=== PATIENT | female | born 1970 ===

== ENCOUNTER 2018-07-16 01:54 | Inpatient (IN) | payer MEDICAID ==
[~2018-07-16] VITALS: Ht 172.7 cm; Wt 117.7 kg
[2018-07-16] VITALS (8 sets, daily range): BP systolic 134–166; BP diastolic 79–98; BMI 39.1
[2018-07-16] MEDS ORDERED: LISINOPRIL-HCT1 EAC4 PO (02:06)
[2018-07-16] MEDS ORDERED: TRAZODONE HCL150 MG (02:06)
[2018-07-16] MEDS ORDERED: ALBUTEROL SULF8.5 GM INH (02:07)
[2018-07-16] MEDS ORDERED: NEURONTIN 300300 MG PO (02:07)
[2018-07-16] MEDS ORDERED: VISTARIL25 MG (02:08)
[2018-07-16] MEDS ORDERED: BUPROPION HCL150 M1 PO (02:08)
[2018-07-16 02:49] LABS: HEMATOCRIT 44.8 % (36.0-48.0); HEMOGLOBIN 15.2 g/dL (12-16); MCH 31.2 pg (26.0-34.0); MCHC 33.9 g/dL (31.0-37.0); MEAN PLATELET VOLUME 9.7 fL (7.4-10.4); PLATELET COUNT 229 10x3/uL (130-400); RBC 4.87 10x6/uL (4.00-5.40); WBC 22.3 10x3/uL (4.8-10.8)
[2018-07-16 03:06] LABS: ALBUMIN 2.9 g/dL (3.4-5.0); ALKALINE PHOSPHATASE 87 U/L (46-116); ALT (SGPT) 132 U/L (10-68); BILIRUBIN - TOTAL 0.73 mg/dL (0.2-1.3); CALC OSMOLALITY 274 mosm/kg (275-300); CALCIUM 7.4 mg/dL (8.5-10.1); CARBON DIOXIDE 23.9 mmol/L (21.0-32.0); CHLORIDE - SERUM 98 mmol/L (98-107); GLUCOSE 136 mg/dL (74-106); POTASSIUM - SERUM 5.1 mmol/L (3.5-5.1); PROTEIN - SERUM 6.9 g/dL (6.4-8.2); SODIUM 133 mmol/L (136-145); UREA NITROGEN 32 mg/dL (7-18); eGFR NON AFRICAN AMERICAN 28 mL/min (90-120)
[2018-07-16 03:19] LABS: AMYLASE - SERUM 60 U/L (25-115); CKMB 97.5 U/L (0.0-3.6); CREATINE KINASE 22174 UL (21-215); LIPASE 61 U/L (73-393); MAGNESIUM - SERUM 1.8 mg/dL (1.8-2.4); TROPONIN-I < 0.017 ng/mL (0.000-0.060)
[2018-07-16 03:22] LABS: LYMPHOCYTES 9 % (15-50); MONOCYTES 6 % (2-11); NEUTROPHILS 79 % (40-80); PLATELET ESTIMATE NORMAL
[2018-07-16 10:54] LABS: HEMATOCRIT 43.7 % (36.0-48.0); HEMOGLOBIN 14.8 g/dL (12-16); MCH 31.3 pg (26.0-34.0); MCHC 33.9 g/dL (31.0-37.0); MCV 92.4 fL (80.0-100.0); MEAN PLATELET VOLUME 9.5 fL (7.4-10.4); PLATELET COUNT 221 10x3/uL (130-400); RBC 4.73 10x6/uL (4.00-5.40); RDW 14.1 % (11.5-14.5); WBC 20.5 10x3/uL (4.8-10.8)
[2018-07-16 11:16] LABS: CALC OSMOLALITY 274 mosm/kg (275-300); CARBON DIOXIDE 23.5 mmol/L (21.0-32.0); CHLORIDE - SERUM 98 mmol/L (98-107); CREATININE - SERUM 2.2 mg/dL (0.6-1.3); GLUCOSE 133 mg/dL (74-106); MAGNESIUM - SERUM 1.6 mg/dL (1.8-2.4); POTASSIUM - SERUM 4.8 mmol/L (3.5-5.1); SODIUM 132 mmol/L (136-145); UREA NITROGEN 36 mg/dL (7-18); eGFR NON AFRICAN AMERICAN 25 mL/min (90-120)
[2018-07-16 11:20] LABS: LYMPHOCYTES 7 % (15-50); MONOCYTES 7 % (2-11); NEUTROPHILS 82 % (40-80); PLATELET ESTIMATE NORMAL
[2018-07-16 11:22] LABS: CALCIUM 6.8 mg/dL (8.5-10.1); CREATINE KINASE 16491 UL (21-215)
[2018-07-16 12:13] LABS: CKMB 105.1 U/L (0.0-3.6)
[2018-07-17 05:27] VITALS: BP 149/85
[2018-07-17 06:04] LABS: BASOPHILS 0.1 % (0-2); EOSINOPHILS 0.4 % (0-7); HEMATOCRIT 40.5 % (36.0-48.0); IMMATURE GRANULOCYTES 0.3 % (0-5); LYMPHOCYTES 11.4 % (15-50); MCH 31.1 pg (26.0-34.0); MCHC 34.6 g/dL (31.0-37.0); MEAN PLATELET VOLUME 9.8 fL (7.4-10.4); MONOCYTES 6.7 % (2-11); NEUTROPHILS 81.1 % (40-80); PLATELET COUNT 200 10x3/uL (130-400); RDW 14.1 % (11.5-14.5); WBC 15.6 10x3/uL (4.8-10.8)
[2018-07-17 06:36] LABS: CALC OSMOLALITY 265 mosm/kg (275-300); CALCIUM 7.1 mg/dL (8.5-10.1); CARBON DIOXIDE 21.6 mmol/L (21.0-32.0); CHLORIDE - SERUM 95 mmol/L (98-107); CREATININE - SERUM 2.1 mg/dL (0.6-1.3); GLUCOSE 121 mg/dL (74-106); POTASSIUM - SERUM 4.6 mmol/L (3.5-5.1); SODIUM 128 mmol/L (136-145); UREA NITROGEN 36 mg/dL (7-18); eGFR NON AFRICAN AMERICAN 27 mL/min (90-120)
[2018-07-17 06:41] LABS: CREATINE KINASE 8616 UL (21-215)
[2018-07-17 07:06] LABS: CKMB 13.3 U/L (0.0-3.6)
[2018-07-17 12:44] VITALS: BP 156/98
[2018-07-17 14:49] VITALS: Ht 172.7 cm; Wt 117.7 kg
[2018-07-17 17:09] VITALS: BP 150/88
[2018-07-17 20:00] VITALS: BP 131/83
[2018-07-18] VITALS: BP 113/74; BP 120/74
[2018-07-18 04:00] VITALS: BP 121/71
[2018-07-18 06:38] LABS: BASOPHILS 0.2 % (0-2); EOSINOPHILS 1.8 % (0-7); HEMATOCRIT 36.4 % (36.0-48.0); HEMOGLOBIN 12.3 g/dL (12-16); IMMATURE GRANULOCYTES 0.3 % (0-5); LYMPHOCYTES 15.6 % (15-50); MCH 30.7 pg (26.0-34.0); MCHC 33.8 g/dL (31.0-37.0); MCV 90.8 fL (80.0-100.0); MEAN PLATELET VOLUME 9.9 fL (7.4-10.4); MONOCYTES 6.6 % (2-11); NEUTROPHILS 75.5 % (40-80); PLATELET COUNT 213 10x3/uL (130-400); RBC 4.01 10x6/uL (4.00-5.40); RDW 14.1 % (11.5-14.5); WBC 11.1 10x3/uL (4.8-10.8)
[2018-07-18 07:24] LABS: CALCIUM 7.7 mg/dL (8.5-10.1); CARBON DIOXIDE 25.5 mmol/L (21.0-32.0); CHLORIDE - SERUM 99 mmol/L (98-107); GLUCOSE 115 mg/dL (74-106); POTASSIUM - SERUM 4.4 mmol/L (3.5-5.1); SODIUM 132 mmol/L (136-145)
[2018-07-18 07:28] LABS: CALC OSMOLALITY 269 mosm/kg (275-300); CREATININE - SERUM 1.3 mg/dL (0.6-1.3); UREA NITROGEN 23 mg/dL (7-18); eGFR NON AFRICAN AMERICAN 46 mL/min (90-120)
[2018-07-18 07:29] LABS: CREATINE KINASE 5455 UL (21-215)
[2018-07-18 07:45] LABS: CKMB 3.3 U/L (0.0-3.6)
[2018-07-18 08:17] VITALS: BP 131/68
[2018-07-18 08:50] LABS: ALBUMIN 1.9 g/dL (3.4-5.0); BILIRUBIN - DIRECT 0.07 mg/dL (0.00-0.30); BILIRUBIN - INDIRECT 0.25 mg/dL (0.00-1.00); BILIRUBIN - TOTAL 0.32 mg/dL (0.2-1.3); PROTEIN - SERUM 5.7 g/dL (6.4-8.2)
[2018-07-18 12:22] VITALS: BP 128/76
[2018-07-18 16:08] VITALS: BP 121/71
[2018-07-18 20:00] VITALS: BP 109/74
[2018-07-19 04:23] VITALS: BP 132/82
[2018-07-19 05:53] LABS: BASOPHILS 0.2 % (0-2); HEMATOCRIT 34.4 % (36.0-48.0); HEMOGLOBIN 11.5 g/dL (12-16); IMMATURE GRANULOCYTES 0.6 % (0-5); LYMPHOCYTES 21.2 % (15-50); MCH 30.5 pg (26.0-34.0); MCHC 33.4 g/dL (31.0-37.0); MCV 91.2 fL (80.0-100.0); MEAN PLATELET VOLUME 9.7 fL (7.4-10.4); MONOCYTES 7.4 % (2-11); NEUTROPHILS 67.6 % (40-80); PLATELET COUNT 228 10x3/uL (130-400); RBC 3.77 10x6/uL (4.00-5.40); RDW 14.2 % (11.5-14.5); WBC 8.8 10x3/uL (4.8-10.8)
[2018-07-19 06:02] LABS: ALBUMIN 1.9 g/dL (3.4-5.0); ANION GAP 12.1 mmol/L (8-16); BILIRUBIN - TOTAL 0.32 mg/dL (0.2-1.3); CARBON DIOXIDE 25.8 mmol/L (21.0-32.0); POTASSIUM - SERUM 3.9 mmol/L (3.5-5.1); PROTEIN - SERUM 5.4 g/dL (6.4-8.2)
[2018-07-19 07:22] LABS: HEPATITIS C ANTIBODY <0.1 S/CO RAT (0.0-0.9)
[2018-07-19 09:23] VITALS: BP 136/76
[2018-07-19 11:38] VITALS: BP 142/72
[2018-07-19 15:27] LABS: CREATINE KINASE 3715 UL (21-215)
[2018-07-19 15:51] LABS: CKMB 1.7 U/L (0.0-3.6)
[2018-07-19 16:15] VITALS: BP 132/72
[2018-07-19 20:00] VITALS: BP 114/67
[2018-07-20] VITALS: BP 118/65
[2018-07-20 03:00] VITALS: BP 139/94
[2018-07-20 06:05] LABS: BASOPHILS 0.2 % (0-2); EOSINOPHILS 3.7 % (0-7); HEMATOCRIT 33.5 % (36.0-48.0); HEMOGLOBIN 11.1 g/dL (12-16); IMMATURE GRANULOCYTES 0.5 % (0-5); LYMPHOCYTES 23.8 % (15-50); MCH 30.2 pg (26.0-34.0); MCHC 33.1 g/dL (31.0-37.0); MCV 91.3 fL (80.0-100.0); MEAN PLATELET VOLUME 9.3 fL (7.4-10.4); NEUTROPHILS 63.8 % (40-80); PLATELET COUNT 270 10x3/uL (130-400); RBC 3.67 10x6/uL (4.00-5.40); RDW 13.9 % (11.5-14.5); WBC 9.7 10x3/uL (4.8-10.8)
[2018-07-20 06:33] LABS: ANION GAP 9.4 mmol/L (8-16); BILIRUBIN - TOTAL 0.49 mg/dL (0.2-1.3); CALCIUM 7.8 mg/dL (8.5-10.1); CARBON DIOXIDE 27.4 mmol/L (21.0-32.0); CREATININE - SERUM 0.9 mg/dL (0.6-1.3); POTASSIUM - SERUM 3.8 mmol/L (3.5-5.1); PROTEIN - SERUM 5.5 g/dL (6.4-8.2)
--- NOTE | 2018-07-20 09:26 | MORECARE ---
CASE MANAGEMENT DISCHARGE SUMMARY PATIENT: LEANDRO DICKEY UNIT: [id number] ADM DATE: 07/16/18 AGE: 47 : 68 SEX: F ROOM/BED: D.2134 AUTHOR: DARRYL BUSTOS PHYSICIAN: REFERRING PHYSICIAN: CROW SOSA MD DATE OF SERVICE: 07/20/18 Discharge Plan Patient Name: LEANDRO DICKEY Facility: [facility]:[place] : 1970 Planned Disposition: Home Anticipated Discharge Date: 07/24/18 Discharge Date: Expected LOS: 8 Initial Reviewer: [email or web address] Initial Review Date: 07/20/2018 Generated: 07/20/18 10:25 am Patient Name: LEANDRO DICKEY Page 97643 at 0926 All edits/amendments must be made on the electronic document DICTATION DATE: 07/20/18924 VALVE GRINDER: NAREN 07/20/18924 RPT#: [id number] DC DATE: STATUS: ADM IN [facility] [address] [place] [address] END OF REPORT
[2018-07-20 09:27] VITALS: BP 115/66
--- NOTE | 2018-07-20 09:32 | MORECARE ---
CASE MANAGEMENT DISCHARGE SUMMARY PATIENT: LEANDRO DICKEY UNIT: [id number] ADM DATE: 07/16/18 AGE: 47 : 68 SEX: F ROOM/BED: D.3574 AUTHOR: AKASHDOC PHYSICIAN: REFERRING PHYSICIAN: CROW SOSA MD DATE OF SERVICE: 07/20/18 Discharge Plan Patient Name: LEANDRO DICKEY Facility: [facility]:[place] : 1970 Planned Disposition: Home Anticipated Discharge Date: 07/24/18 Discharge Date: Expected LOS: 8 Initial Reviewer: [id number] Initial Review Date: 07/20/2018 Generated: 07/20/18 10:32 am Comments DCP- Discharge Planning Updated by [email or web address]: Rita Serrano on 07/20/18 8:[address] Patient Name: LEANDRO DICKEY Admission Status: ER Accout number: [id number] Admission Date: 07-16-2018 : 1970 Admission Diagnosis: Attending: CROW SOSA Current LOS: 4 Anticipated DC Date: 07-24-2018 Planned Disposition: Home Primary Insurance: MEDICAID [place] Discharge Planning Comments: CM MET WITH PATIENT REGARDING D/C NEEDS AND PLANS. PATIENT STATED SHE LIVES WITH FAMILY AND HER FRIEND RAJAT SHUKLA WILL DRIVE HER HOME AT DISCHARGE. PATIENT STATES SHE HAS 2 STEPS TO ENTER HER HOME. PATIENT STATED SHE IS INDEPENDENT WITH HER CARE AND HAS A WALKER, CANE, AND BSC AT HOME IF NEEDED. PATIENTS PCP IS DR. AYON IN [place] BUT SHE SEES THE [place]. [facility] [place]. PATIENT REFUSED HOME HEALTH AT THIS TIME. CM WILL CONTINUE TO FOLLOW PATIENT WITH D/C NEEDS AND PLANS. PCP DR. AYON ([facility] IN [place]) [facility] IN [place] MAYELIN DINH- [phone] Power Plant Operator: Rita Serrano DCPIA - Discharge Planning Initial Assessment Updated by [email or web address]: Rita Serrano on 07/20/18 9:26 am * Is the patient Alert and Oriented? Yes * How many steps to enter\exit or inside your home? * PCP DR. AYON ([facility]) [facility] IN [place] * Pharmacy [facility] IN [facility] * Preadmission Environment Home with Family * ADLs Independent * Equipment Bedside Commode Mariano Ashraf * List name and contact numbers for known caregivers / representatives who currently or will assist patient after discharge: MAYELINMario DINH [phone] * Verbal permission to speak to the caregivers and representatives has been obtained from the patient. Yes * Community resources currently utilized None * Additional services required to return to the preadmission environment? Yes * Can the patient safely return to the preadmission environment? Yes * Has this patient been hospitalized within the prior 30 days at any hospital? No Last DP export: 07/20/18 8:26 a Patient Name: LEANDRO DICKEY Page 31587 at 0932 All edits/amendments must be made on the electronic document DICTATION DATE: 07/20/18931 NUT CHOPPER: NAREN 07/20/18931 RPT#: [id number] DC DATE: STATUS: ADM IN [facility] [address] [place] [address] END OF REPORT
[2018-07-20 11:56] VITALS: BP 122/62
[2018-07-20 14:15] LABS: CREATINE KINASE 2872 UL (21-215)
[2018-07-20 14:17] LABS: CKMB 1.3 U/L (0.0-3.6)
[2018-07-20 15:55] VITALS: BP 110/71
[2018-07-20 20:00] VITALS: BP 118/61
[2018-07-21 00:25] VITALS: BP 137/81
[2018-07-21 04:25] VITALS: BP 126/81
[2018-07-21 06:22] LABS: BASOPHILS 0.2 % (0-2); EOSINOPHILS 3.4 % (0-7); HEMATOCRIT 32.7 % (36.0-48.0); HEMOGLOBIN 10.8 g/dL (12-16); IMMATURE GRANULOCYTES 0.6 % (0-5); LYMPHOCYTES 17.1 % (15-50); MCH 30.3 pg (26.0-34.0); MCV 91.9 fL (80.0-100.0); MEAN PLATELET VOLUME 8.9 fL (7.4-10.4); MONOCYTES 6.6 % (2-11); NEUTROPHILS 72.1 % (40-80); PLATELET COUNT 236 10x3/uL (130-400); RBC 3.56 10x6/uL (4.00-5.40); RDW 13.9 % (11.5-14.5); WBC 8.5 10x3/uL (4.8-10.8)
[2018-07-21 07:13] LABS: ALBUMIN 2.2 g/dL (3.4-5.0); ALKALINE PHOSPHATASE 68 U/L (46-116); ALT (SGPT) 61 U/L (10-68); BILIRUBIN - TOTAL 0.59 mg/dL (0.2-1.3); CALC OSMOLALITY 270 mosm/kg (275-300); CALCIUM 8.2 mg/dL (8.5-10.1); CARBON DIOXIDE 30.2 mmol/L (21.0-32.0); CHLORIDE - SERUM 98 mmol/L (98-107); CREATININE - SERUM 0.7 mg/dL (0.6-1.3); GLUCOSE 86 mg/dL (74-106); POTASSIUM - SERUM 3.4 mmol/L (3.5-5.1); PROTEIN - SERUM 5.7 g/dL (6.4-8.2); SODIUM 136 mmol/L (136-145); UREA NITROGEN 13 mg/dL (7-18); eGFR NON AFRICAN AMERICAN > 90 mL/min (90-120)
[2018-07-21 07:16] LABS: CKMB 2.2 U/L (0.0-3.6); CREATINE KINASE 2259 UL (21-215)
[2018-07-21 08:30] VITALS: BP 157/79
[2018-07-21 12:02] VITALS: BP 135/70
[2018-07-21 15:31] VITALS: BP 138/76
[2018-07-21 20:00] VITALS: BP 146/76
[2018-07-22 00:25] VITALS: BP 130/72
[2018-07-22 04:25] VITALS: BP 128/81
[2018-07-22 05:22] LABS: BASOPHILS 0.1 % (0-2); EOSINOPHILS 4.4 % (0-7); HEMATOCRIT 33.3 % (36.0-48.0); HEMOGLOBIN 11.1 g/dL (12-16); IMMATURE GRANULOCYTES 0.6 % (0-5); LYMPHOCYTES 21.1 % (15-50); MCH 30.8 pg (26.0-34.0); MCHC 33.3 g/dL (31.0-37.0); MCV 92.5 fL (80.0-100.0); MONOCYTES 6.8 % (2-11); PLATELET COUNT 265 10x3/uL (130-400); RDW 13.7 % (11.5-14.5); WBC 8.5 10x3/uL (4.8-10.8)
[2018-07-22 06:38] LABS: ALBUMIN 2.3 g/dL (3.4-5.0); ALKALINE PHOSPHATASE 79 U/L (46-116); ALT (SGPT) 59 U/L (10-68); BILIRUBIN - TOTAL 0.58 mg/dL (0.2-1.3); CALC OSMOLALITY 270 mosm/kg (275-300); CALCIUM 7.8 mg/dL (8.5-10.1); CARBON DIOXIDE 28.6 mmol/L (21.0-32.0); CHLORIDE - SERUM 99 mmol/L (98-107); CREATININE - SERUM 0.8 mg/dL (0.6-1.3); GLUCOSE 91 mg/dL (74-106); PROTEIN - SERUM 6.1 g/dL (6.4-8.2); SODIUM 136 mmol/L (136-145); UREA NITROGEN 11 mg/dL (7-18); eGFR NON AFRICAN AMERICAN 81 mL/min (90-120)
[2018-07-22 06:55] LABS: POTASSIUM - SERUM 2.9 mmol/L (3.5-5.1)
[2018-07-22 08:41] VITALS: BP 141/82
--- NOTE | 2018-07-22 14:03 | MORECARE ---
CASE MANAGEMENT DISCHARGE SUMMARY PATIENT: LEANDRO DICKEY UNIT: [id number] ADM DATE: 07/16/18 AGE: 47 : 68 SEX: F ROOM/BED: D.6144 AUTHOR: DARRYL BUSTOS PHYSICIAN: REFERRING PHYSICIAN: CROW SOSA MD DATE OF SERVICE: 07/22/18 Discharge Plan Patient Name: LEANDRO DICKEY Facility: [facility]:[place] : 1970 Planned Disposition: Home with Home Health Anticipated Discharge Date: 07/23/18 Discharge Date: Expected LOS: 7 Initial Reviewer: [email or web address] Initial Review Date: 07/20/2018 Generated: 07/22/18 3:03 pm Comments DCP- Discharge Planning Updated by [email or web address]: Rita Serrano on 07/20/18 8:[address] Patient Name: LEANDRO DICKEY Admission Status: ER Accout number: [id number] Admission Date: 07-16-2018 : 1970 Admission Diagnosis: Attending: CROW SOSA Current LOS: 4 Anticipated DC Date: 07-24-2018 Planned Disposition: Home Primary Insurance: MEDICAID [place] Discharge Planning Comments: CM MET WITH PATIENT REGARDING D/C NEEDS AND PLANS. PATIENT STATED SHE LIVES WITH FAMILY AND HER FRIEND RAJAT SHUKLA WILL DRIVE HER HOME AT DISCHARGE. PATIENT STATES SHE HAS 2 STEPS TO ENTER HER HOME. PATIENT STATED SHE IS INDEPENDENT WITH HER CARE AND HAS A WALKER, CANE, AND BSC AT HOME IF NEEDED. PATIENTS PCP IS DR. AYON IN [place] BUT SHE SEES THE [facility]. PATIENTS PHARMACY IS [facility] IN [place]. PATIENT REFUSED HOME HEALTH AT THIS TIME. CM WILL CONTINUE TO FOLLOW PATIENT WITH D/C NEEDS AND PLANS. PCP DR. AYON ([facility] IN [place]) [facility] IN [place] MAYELIN DINH- [phone] Checker In: Rita Serrano DCPIA - Discharge Planning Initial Assessment Updated by [email or web address]: Rita Serrano on 07/20/18 9:26 am * Is the patient Alert and Oriented? Yes * How many steps to enter\exit or inside your home? * PCP DR. AYON ([facility]) [facility] IN [place] * Pharmacy [facility] IN [facility] * Preadmission Environment Home with Family * ADLs Independent * Equipment Bedside Commode Mariano Ashraf * List name and contact numbers for known caregivers / representatives who currently or will assist patient after discharge: MAYELIN CARLOSLUZ MARIA [phone] * Verbal permission to speak to the caregivers and representatives has been obtained from the patient. Yes * Community resources currently utilized None * Additional services required to return to the preadmission environment? Yes * Can the patient safely return to the preadmission environment? Yes * Has this patient been hospitalized within the prior 30 days at any hospital? No Last DP export: 07/20/18 8:32 a Patient Name: LEANDRO DICKEY Page 98236 at 1403 All edits/amendments must be made on the electronic document DICTATION DATE: 07/22/181401 CLERICAL PROOFREADER: NAREN 07/22/181401 RPT#: [id number] DC DATE: STATUS: ADM IN [facility] [address] [place] [address] END OF REPORT
--- NOTE | 2018-07-22 14:13 | MORECARE ---
CASE MANAGEMENT DISCHARGE SUMMARY PATIENT: LEANDRO DICKEY UNIT: [id number] ADM DATE: 07/16/18 AGE: 47 : 68 SEX: F ROOM/BED: D.4405 AUTHOR: AKASH,DOC PHYSICIAN: REFERRING PHYSICIAN: CROW SOSA MD DATE OF SERVICE: 07/22/18 Discharge Plan Patient Name: LEANDRO DICKEY Facility: [facility]:[place] : 1970 Planned Disposition: Home with Home Health Anticipated Discharge Date: 07/23/18 Discharge Date: Expected LOS: 7 Initial Reviewer: [email or web address] Initial Review Date: 07/20/2018 Generated: 07/22/18 3:13 pm Comments DCP- Discharge Planning Updated by [email or web address]: Shahid Hall on 07/22/18 1:[address] Patient Name: LEANDRO DICKEY Encounter No: [id number] : 1970 Primary Insurance: MEDICAID [place] Anticipated DC Date: 07-23-2018 Planned Disposition: Home with Home Health External Planned Provider: [facility] DCP follow-up note: CM MET WITH PT IN ROOM TO DISCUSS DISCHARGE NEEDS AND PLANNING. CM DISCUSSED AVAILABILITY OF HOME HEALTH, REHAB SERVICES AND MEDICAL EQUIPMENT. PT DOES NOT HAVE INPATIENT OR SHELTER BENEFIT WITH MEDICAID. PT DECLINES PAPER PRODUCTS PRINTER CARE PLACEMENT IN [place]. CM DISCUSSED OUTPATIENT AND HOME HEALTH THERAPY. PT WOULD LIKE CM TO CALL [facility] AND EXPLORE THE OPTION. CM CALLED [facility] OUTPATIENT THERAPY DEPARTMENT, , SPOKE TO CELESTE WHO INFORMED CM THAT PT ONLY GETS 12 ACUTE VISITS FOR OUTPATIENT SERVICES PER YEAR AND THAT INCLUDES DOCTOR CONSULTS AND DENTISTRY. CELESTE SUGGESTS THAT PT ACCEPT HOME HEALTH WITH [facility] AND THEY CAN WORK WITH HOME HEALTH AND PROVIDE ACCESS TO THE OUTPATIENT GYM TO ASSIST WITH THERAPY SERVICES THROUGH MEDICAID. CM SPOKE TO PT IN ROOM, PT AGREEABLE WITH HOME HEALTH SUGGESTED BY CELESTE; PROVIDER LISTING PROVIDED, CHOICE SIGNED FOR [facility]. PT REPORTS A FRIEND FROM [place] TO TRANSPORT HOME AT DISCHARGE. PT REPORTS [place]CHARGE ADDRESS TO [place] [address] [address] PT PLANS TO DISCHARGE HOME TO HER BROTHER'S HOME, WANTS HOME HEALTH FOR PHYSICAL THERAPY, CM TO ARRANGE WITH [facility] WITH PHYSICIAN AGREEMENT AND ORDERS. CM TO FOLLOW AND ASSIST NEEDED. Shahid Hall, CASE MANAGEMENT DCP- Discharge Planning Updated by [id number]: Rita Serrano on 07/20/18 8:[address] Patient Name: LEANDRO DICKEY Admission Status: ER Accout number: [id number] Admission Date: 07-16-2018 : 1970 Admission Diagnosis: Attending: CROW SOSA Current LOS: 4 Anticipated DC Date: 07-24-2018 Planned Disposition: Home Primary Insurance: MEDICAID [place] Discharge Planning Comments: CM MET WITH PATIENT REGARDING D/C NEEDS AND PLANS. PATIENT STATED SHE LIVES WITH FAMILY AND HER FRIEND RAJAT SHUKLA WILL DRIVE HER HOME AT DISCHARGE. PATIENT STATES SHE HAS 2 STEPS TO ENTER HER HOME. PATIENT STATED SHE IS INDEPENDENT WITH HER CARE AND HAS A WALKER, CANE, AND BSC AT HOME IF NEEDED. PATIENTS PCP IS DR. AYON IN [place] BUT SHE SEES THE [place]. PATIENTS PHARMACY IS [facility] IN [place]. PATIENT REFUSED HOME HEALTH AT THIS TIME. CM WILL CONTINUE TO FOLLOW PATIENT WITH D/C NEEDS AND PLANS. PCP DR. AYON ([facility] IN [place]) [facility] [place] MAYELIN DINH- [phone] Cast Shell Grinder: Rita Serrano DCPIA - Discharge Planning Initial Assessment Updated by [email or web address]: Rita Serrano on 07/20/18 9:26 am * Is the patient Alert and Oriented? Yes * How many steps to enter\exit or inside your home? * PCP DR. AYON ([facility]) [facility] IN [place] * [facility] * Preadmission Environment Home with Family * ADLs Independent * Equipment Bedside Commode Cane Walker * List name and contact numbers for known caregivers / representatives who currently or will assist patient after discharge: MAYELIN DINH [phone] * Verbal permission to speak to the caregivers and representatives has been obtained from the patient. Yes * Community resources currently utilized None * Additional services required to return to the preadmission environment? Yes * Can the patient safely return to the preadmission environment? Yes * Has this patient been hospitalized within the prior 30 days at any hospital? No Coverage Notice Reviewer: [email or web address] Saundra Hall Notice Issued Date-Time: 07/22/2018 13:40 Notice Type: Patient Choice Letter Notice Delivered To: Patient Relationship to Patient: Compressor Mechanic Bus Name: Delivery Method: HAND - Hand Delivered Deysi Days: Prior Verbal Notification: Recipient Understood Notice: Yes Recipient Signature: Yes Med Rec Note Co-signed by Attending: Coverage Notice Comment: [facility] Last DP export: 07/22/18 1:03 p Patient Name: LEANDRO DICKEY Page 30076 at 1413 All edits/amendments must be made on the electronic document DICTATION DATE: 07/22/18 1412 NEIGHBORHOOD COORDINATOR: NAREN 07/22/18 1412 RPT#: [id number] DC DATE: STATUS: ADM IN [facility] [address] [place] [address] END OF REPORT
[2018-07-22 20:00] VITALS: BP 141/60
[2018-07-23] VITALS: BP 134/75
[2018-07-23 04:00] VITALS: BP 130/86
[2018-07-23 05:49] LABS: BASOPHILS 0.2 % (0-2); EOSINOPHILS 3.7 % (0-7); HEMOGLOBIN 10.1 g/dL (12-16); IMMATURE GRANULOCYTES 0.8 % (0-5); LYMPHOCYTES 25.2 % (15-50); MCH 30.1 pg (26.0-34.0); MCHC 32.6 g/dL (31.0-37.0); MCV 92.5 fL (80.0-100.0); MEAN PLATELET VOLUME 8.9 fL (7.4-10.4); MONOCYTES 9.9 % (2-11); NEUTROPHILS 60.2 % (40-80); PLATELET COUNT 254 10x3/uL (130-400); RBC 3.35 10x6/uL (4.00-5.40); RDW 13.8 % (11.5-14.5)
[2018-07-23 06:18] LABS: ALBUMIN 2.1 g/dL (3.4-5.0); ALKALINE PHOSPHATASE 70 U/L (46-116); ALT (SGPT) 48 U/L (10-68); BILIRUBIN - TOTAL 0.51 mg/dL (0.2-1.3); CALC OSMOLALITY 276 mosm/kg (275-300); CALCIUM 7.9 mg/dL (8.5-10.1); CARBON DIOXIDE 32.6 mmol/L (21.0-32.0); CHLORIDE - SERUM 103 mmol/L (98-107); CREATININE - SERUM 0.7 mg/dL (0.6-1.3); GLUCOSE 103 mg/dL (74-106); PROTEIN - SERUM 5.4 g/dL (6.4-8.2); SODIUM 139 mmol/L (136-145); UREA NITROGEN 10 mg/dL (7-18); eGFR NON AFRICAN AMERICAN > 90 mL/min (90-120)
[2018-07-23 06:22] LABS: POTASSIUM - SERUM 3.5 mmol/L (3.5-5.1)
[2018-07-23 07:35] LABS: WBC 6.3 10x3/uL (4.8-10.8)
[2018-07-23 08:34] VITALS: BP 139/78
--- NOTE | 2018-07-23 11:21 | MORECARE ---
CASE MANAGEMENT DISCHARGE SUMMARY PATIENT: LEANDRO DICKEY UNIT: [id number] ADM DATE: 07/16/18 AGE: 47 : 68 SEX: F ROOM/BED: D.6258 AUTHOR: AKASH,DOC PHYSICIAN: REFERRING PHYSICIAN: CROW SOSA MD DATE OF SERVICE: 07/23/18 Discharge Plan Patient Name: LEANDRO DICKEY Facility: [facility]:[place] : 1970 Planned Disposition: Home with Home Health Anticipated Discharge Date: 07/23/18 Discharge Date: Expected LOS: 7 Initial Reviewer: [email or web address] Initial Review Date: 07/20/2018 Generated: 07/23/18 12:21 pm Comments DCP- Discharge Planning Updated by [email or web address]: Shahid Hall on 07/22/18 1:[address] Patient Name: LEANDRO DICKEY Encounter No: [id number] : 1970 Primary Insurance: MEDICAID [place] Anticipated DC Date: 07-23-2018 Planned Disposition: Home with Home Health External Planned Provider: [facility] DCP follow-up note: CM MET WITH PT IN ROOM TO DISCUSS DISCHARGE NEEDS AND PLANNING. CM DISCUSSED AVAILABILITY OF HOME HEALTH, REHAB SERVICES AND MEDICAL EQUIPMENT. PT DOES NOT HAVE INPATIENT OR SENIOR LIVING BENEFIT WITH MEDICAID. PT DECLINES TELE MARKETING EXECUTIVE CARE PLACEMENT IN [facility]. CM DISCUSSED OUTPATIENT AND HOME HEALTH THERAPY. PT WOULD LIKE CM TO CALL [facility] AND EXPLORE THE OPTION. CM CALLED [facility] OUTPATIENT THERAPY DEPARTMENT, , SPOKE TO CELESTE WHO INFORMED CM THAT PT ONLY GETS 12 ACUTE VISITS FOR OUTPATIENT SERVICES PER YEAR AND THAT INCLUDES DOCTOR CONSULTS AND DENTISTRY. CELESTE SUGGESTS THAT PT ACCEPT HOME HEALTH WITH [facility] AND THEY CAN WORK WITH HOME HEALTH AND PROVIDE ACCESS TO THE OUTPATIENT GYM TO ASSIST WITH THERAPY SERVICES THROUGH MEDICAID. CM SPOKE TO PT IN ROOM, PT AGREEABLE WITH HOME HEALTH SUGGESTED BY CELESTE; PROVIDER LISTING PROVIDED, CHOICE SIGNED FOR [facility]. PT REPORTS A FRIEND FROM [place] TO TRANSPORT HOME AT DISCHARGE. PT REPORTS [place]CHAR[place] ADDR[place] [facility] [address] [address] PT PLANS TO DISCHARGE HOME TO HER BROTHER'S HOME, WANTS HOME HEALTH FOR PHYSICAL THERAPY, CM TO ARRANGE WITH [facility] WITH PHYSICIAN AGREEMENT AND ORDERS. CM TO FOLLOW AND ASSIST NEEDED. Shahid Hall, CASE MANAGEMENT DCP- Discharge Planning Updated by [email or web address]: Rita Serrano on 07/20/18 8:[address] Patient Name: LEANDRO DICKEY Admission Status: ER Accout number: [id number] Admission Date: 07-16-2018 : 1970 Admission Diagnosis: Attending: CROW SOSA Current LOS: 4 Anticipated DC Date: 07-24-2018 Planned Disposition: Home Primary Insurance: MEDICAID [place] Discharge Planning Comments: CM MET WITH PATIENT REGARDING D/C NEEDS AND PLANS. PATIENT STATED SHE LIVES WITH FAMILY AND HER FRIEND RAJAT SHUKLA WILL DRIVE HER HOME AT DISCHARGE. PATIENT STATES SHE HAS 2 STEPS TO ENTER HER HOME. PATIENT STATED SHE IS INDEPENDENT WITH HER CARE AND HAS A WALKER, CANE, AND BSC AT HOME IF NEEDED. PATIENTS PCP IS DR. AYON IN [place] BUT SHE SEES THE [facility]. PATIENTS PHARMACY IS [facility] IN [place]. PATIENT REFUSED HOME HEALTH AT THIS TIME. CM WILL CONTINUE TO FOLLOW PATIENT WITH D/C NEEDS AND PLANS. PCP DR. AYON ([facility] IN [place]) [facility] [place] MAYELIN DINH- [phone] Photo Manager: Rita Serrano DCPIA - Discharge Planning Initial Assessment Updated by [id number]: Rita Serrano on 07/20/18 9:26 am * Is the patient Alert and Oriented? Yes * How many steps to enter\exit or inside your home? * PCP DR. AYON ([facility]) [facility] IN [place] * [facility] * Preadmission Environment Home with Family * ADLs Independent * Equipment Bedside Commode Cane Walker * List name and contact numbers for known caregivers / representatives who currently or will assist patient after discharge: MAYELIN DINH [phone] * Verbal permission to speak to the caregivers and representatives has been obtained from the patient. Yes * Community resources currently utilized None * Additional services required to return to the preadmission environment? Yes * Can the patient safely return to the preadmission environment? Yes * Has this patient been hospitalized within the prior 30 days at any hospital? No External Providers External Provider: OTHER-OTHER Next Contact Date: 07/23/2018 Service Request Date: Service Type: Resolution: Reviewer: Comments: Coverage Notice Reviewer: [id number] - Shahid Isabel Notice Issued Date-Time: 07/22/2018 13:40 Notice Type: Patient Choice Letter Notice Delivered To: Patient Relationship to Patient: Unit Educator Name: Delivery Method: HAND - Hand Delivered Deysi Days: Prior Verbal Notification: Recipient Understood Notice: Yes Recipient Signature: Yes Med Rec Note Co-signed by Attending: Coverage Notice Comment: [facility] Last DP export: 07/22/18 1:13 p Patient Name: LEANDRO DICKEY Page 25057 at 1121 All edits/amendments must be made on the electronic document DICTATION DATE: 07/23/181120 TRAVELING REPRESENTATIVE: NAREN 07/23/18 112 RPT#: [id number] DC DATE: STATUS: ADM IN [facility] [address] [place] [address] END OF REPORT
[2018-07-23 11:31] VITALS: BP 135/79
--- NOTE | 2018-07-23 11:42 | MORECARE ---
CASE MANAGEMENT DISCHARGE SUMMARY PATIENT: LEANDRO DICKEY UNIT: [id number] ADM DATE: 07/16/18 AGE: 47 : 68 SEX: F ROOM/BED: D.0990 AUTHOR: AKASH,DOC PHYSICIAN: REFERRING PHYSICIAN: CROW SOSA MD DATE OF SERVICE: 07/23/18 Discharge Plan Patient Name: LEANDRO DICKEY Facility: [facility]:[place] : 1970 Planned Disposition: Home with Home Health Anticipated Discharge Date: 07/23/18 Discharge Date: Expected LOS: 7 Initial Reviewer: [id number] Initial Review Date: 07/20/2018 Generated: 07/23/18 12:42 pm Comments DCP- Discharge Planning Updated by [email or web address]: Shahid Hall on 07/22/18 1:[address] Patient Name: LEANDRO DICKEY Encounter No: [id number] : 1970 Primary Insurance: MEDICAID [place] Anticipated DC Date: 07-23-2018 Planned Disposition: Home with Home Health External Planned Provider: [facility] DCP follow-up note: CM MET WITH PT IN ROOM TO DISCUSS DISCHARGE NEEDS AND PLANNING. CM DISCUSSED AVAILABILITY OF HOME HEALTH, REHAB SERVICES AND MEDICAL EQUIPMENT. PT DOES NOT HAVE INPATIENT OR [facility] BENEFIT WITH MEDICAID. PT DECLINES PHLEBOTOMY LAB ASSISTANT CARE PLACEMENT IN [facility]. CM DISCUSSED OUTPATIENT AND HOME HEALTH THERAPY. PT WOULD LIKE CM TO CALL [facility] AND EXPLORE THE OPTION. CM CALLED [facility] OUTPATIENT THERAPY DEPARTMENT, , SPOKE TO CELESTE WHO INFORMED CM THAT PT ONLY GETS 12 ACUTE VISITS FOR OUTPATIENT SERVICES PER YEAR AND THAT INCLUDES DOCTOR CONSULTS AND DENTISTRY. CELESTE SUGGESTS THAT PT ACCEPT HOME HEALTH WITH [facility] AND THEY CAN WORK WITH HOME HEALTH AND PROVIDE ACCESS TO THE OUTPATIENT GYM TO ASSIST WITH THERAPY SERVICES THROUGH MEDICAID. CM SPOKE TO PT IN ROOM, PT AGREEABLE WITH HOME HEALTH SUGGESTED BY CELESTE; PROVIDER LISTING PROVIDED, CHOICE SIGNED FOR [facility]. PT REPORTS A FRIEND FROM [place] TO TRANSPORT HOME AT DISCHARGE. PT REPORTS [place] ADDR[place] [address] [address] PT PLANS TO DISCHARGE HOME TO HER BROTHER'S HOME, WANTS HOME HEALTH FOR PHYSICAL THERAPY, CM TO ARRANGE WITH [facility] WITH PHYSICIAN AGREEMENT AND ORDERS. CM TO FOLLOW AND ASSIST NEEDED. Shahid Hall, CASE MANAGEMENT DCP- Discharge Planning Updated by [email or web address]: Rita Serrano on 07/20/18 8:[address] Patient Name: LEANDRO DICKEY Admission Status: ER Accout number: [id number] Admission Date: 07-16-2018 : 1970 Admission Diagnosis: Attending: CROW SOSA Current LOS: 4 Anticipated DC Date: 07-24-2018 Planned Disposition: Home Primary Insurance: MEDICAID [place] Discharge Planning Comments: CM MET WITH PATIENT REGARDING D/C NEEDS AND PLANS. PATIENT STATED SHE LIVES WITH FAMILY AND HER FRIEND RAJAT SHUKLA WILL DRIVE HER HOME AT DISCHARGE. PATIENT STATES SHE HAS 2 STEPS TO ENTER HER HOME. PATIENT STATED SHE IS INDEPENDENT WITH HER CARE AND HAS A WALKER, CANE, AND BSC AT HOME IF NEEDED. PATIENTS PCP IS DR. AYON IN [place] BUT SHE SEES THE [facility]. PATIENTS PHARMACY IS [facility] IN [place]. PATIENT REFUSED HOME HEALTH AT THIS TIME. CM WILL CONTINUE TO FOLLOW PATIENT WITH D/C NEEDS AND PLANS. PCP DR. AYON ([facility] IN [place]) [facility] [place] MAYELIN DINH- [phone] Toll Mechanic: Rita Serrano DCPIA - Discharge Planning Initial Assessment Updated by [id number]: Rita Serrano on 07/20/18 9:26 am * Is the patient Alert and Oriented? Yes * How many steps to enter\exit or inside your home? * PCP DR. AYON ([facility]) [facility] IN [place] * [facility] * Preadmission Environment Home with Family * ADLs Independent * Equipment Bedside Commode Cane Walker * List name and contact numbers for known caregivers / representatives who currently or will assist patient after discharge: MAYELIN DINH [phone] * Verbal permission to speak to the caregivers and representatives has been obtained from the patient. Yes * Community resources currently utilized None * Additional services required to return to the preadmission environment? Yes * Can the patient safely return to the preadmission environment? Yes * Has this patient been hospitalized within the prior 30 days at any hospital? No External Providers External Provider: [facility] Next Contact Date: 07/23/2018 Service Request Date: Service Type: Resolution: Reviewer: Comments: Coverage Notice Reviewer: [email or web address] Saundra Key Isabel Notice Issued Date-Time: 07/22/2018 13:40 Notice Type: Patient Choice Letter Notice Delivered To: Patient Relationship to Patient: General Car Yard Supervisor Name: Delivery Method: HAND - Hand Delivered Deysi Days: Prior Verbal Notification: Recipient Understood Notice: Yes Recipient Signature: Yes Med Rec Note Co-signed by Attending: Coverage Notice Comment: [facility] Last DP export: 07/23/18 10:21 a Patient Name: LEANDRO DICKEY Page 04685 at 1142 All edits/amendments must be made on the electronic document DICTATION DATE: 07/23/18 1142 SCHOOL TRANSPORTATION DIRECTOR: NAREN 07/23/18 1142 RPT#: [id number] DC DATE: STATUS: ADM IN [facility] [address] [place] [address] END OF REPORT
--- NOTE | 2018-07-23 11:57 | MORECARE ---
CASE MANAGEMENT DISCHARGE SUMMARY PATIENT: LEANDRO DICKEY UNIT: [id number] ADM DATE: 07/16/18 AGE: 47 : 68 SEX: F ROOM/BED: D.9712 AUTHOR: AKASH,DOC PHYSICIAN: REFERRING PHYSICIAN: CROW SOSA MD DATE OF SERVICE: 07/23/18 Discharge Plan Patient Name: LEANDRO DICKEY Facility: [facility]:[place] : 1970 Planned Disposition: Home with Home Health Anticipated Discharge Date: 07/23/18 Discharge Date: Expected LOS: 7 Initial Reviewer: [id number] Initial Review Date: 07/20/2018 Generated: 07/23/18 12:57 pm Comments DCP- Discharge Planning Updated by [id number]: Shahid Hall on 07/23/18 10:[address] Patient Name: LEANDRO DICKEY Admission Status: ER Accout number: [id number] Admission Date: 07-16-2018 : 1970 Admission Diagnosis:ACUTE KIDNEY FAILURE, UNSPECIFIED Attending: CROW SOSA Current LOS: 7 Anticipated DC Date: 07-23-2018 Planned Disposition: Home with Home Health Primary Insurance: MEDICAID [place] PLANNED EXTERNAL PROVIDER: [facility] Discharge Planning Comments: CM RECEIVED ORDER FOR WALKER AND ANKLE BOOT. CM NOTIFIED STEM THRESHING MACHINE OPERATOR WHO WILL NOTIFY CENTRAL SUPPLY REGARDING ANKLE BOOT. CM MET WITH PT IN ROOM, DISCUSSED WALKER ORDER, PROVIDED LIST OF MEDICAL EQUIPMENT PROVIDERS. PT WANTS STANDARD WALKER THAT INSURANCE WILL COVER COSTS. PT HAS NO CHOICE ON PROVIDER. PT STILL IN AGREEMENT WITH [facility], CHOICE PREVIOUSLY SIGNED FOR [facility]. PT DENIES FURHTER NEEDS. CM RECEIVED ORDER FOR HOME HEALTH. [facility], , SPOKE TO JANINE AND PROVIDED REFERRAL INFORMATION. CM FAXED REFERRAL TO [facility], . JANINE ADVISED THEY WILL DELIVER WALKER TO HOSPITAL TODAY. CM CALLED [facility], , SPOKE TO MARY LOU WHO TOOK REFERRAL INFORMATION AND WILL SCREEN AND CALL CM SHORTLY WITH ADMIT DETERINATION FOR HOME HEALTH SERVICES. CM FAXED REFERRAL AND DISCHARGE INFORMATION TO [facility] AT [phone]. CM WAITING ADMISSION DETERMINATION FROM [facility]. Rotary Driller: Shahid Hall DCP- Discharge Planning Updated by [id number]: Shahid Hall on 07/22/18 1:[address] Patient Name: LEANDRO DICKEY Encounter No: [id number] : 1970 Primary Insurance: MEDICAID [place] Anticipated DC Date: 07-23-2018 Planned Disposition: Home with Home Health External Planned Provider: [facility] DCP follow-up note: CM MET WITH PT IN ROOM TO DISCUSS DISCHARGE NEEDS AND PLANNING. CM DISCUSSED AVAILABILITY OF HOME HEALTH, REHAB SERVICES AND MEDICAL EQUIPMENT. PT DOES NOT HAVE INPATIENT OR [facility] BENEFIT WITH MEDICAID. PT DECLINES SHELTER CARE PLACEMENT IN RETIREMENT. CM DISCUSSED OUTPATIENT AND HOME HEALTH THERAPY. PT WOULD LIKE CM TO CALL [facility] AND EXPLORE THE OPTION. CM CALLED [facility] OUT[facility]IENT THERAP[facility] DEPARTMENT, , SPOKE TO CELESTE WHO INFORMED CM THAT PT ONLY GETS 12 ACUTE VISITS FOR OUTPATIENT SERVICES PER YEAR AND THAT INCLUDES DOCTOR CONSULTS AND DENTISTRY. CELESTE SUGGESTS THAT PT ACCEPT HOME HEALTH WITH [facility] AND THEY CAN WORK WITH HOME HEALTH AND PROVIDE ACCESS TO THE OUTPATIENT GYM TO ASSIST WITH THERAPY SERVICES THROUGH MEDICAID. CM SPOKE TO PT IN ROOM, PT AGREEABLE WITH [facility] SUGGESTED BY CELESTE; PROVIDER LISTING PROVIDED, CHOICE SIGNED FOR [facility]. PT REPORTS A FRIEND FROM [place] TO TRANSPORT HOME AT DISCHARGE. PT REPORTS DISCHARGE ADDRESS TO HER BROTHER'S HOME OF [address] [place] [address]. PT PLANS TO DISCHARGE HOME TO HER BROTHER'S HOME, WANTS [facility] FOR PHYSICAL THERAPY, CM TO ARRANGE WITH [facility] WITH PHYSICIAN AGREEMENT AND ORDERS. CM TO FOLLOW AND ASSIST NEEDED. Shahid Hall, CASE MANAGEMENT DCP- Discharge Planning Updated by [email or web address]: Rita Serrano on 07/20/18 8:[address] Patient Name: ELANDRO DICKEY Admission Status: ER Accout number: [id number] Admission Date: 07-16-2018 : 1970 Admission Diagnosis: Attending: CROW SOSA Current LOS: 4 Anticipated DC Date: 07-24-2018 Planned Disposition: Home Primary Insurance: MED[place]ID [place] Discharge Planning Comments: CM MET WITH PATIENT REGARDING D/C NEEDS AND PLANS. PATIENT STATED SHE LIVES WITH FAMILY AND HER FRIEND RAJAT SHUKLA WILL DRIVE HER HOME AT DISCHARGE. PATIENT STATES SHE HAS 2 STEPS TO ENTER HER HOME. PATIENT STATED SHE IS INDEPENDENT WITH HER CARE AND HAS A WALKER, CANE, AND BSC AT HOME IF NEEDED. PATIENTS PCP IS DR. AYON IN [place] BUT SHE SEES [facility]. PATIENTS PHARMACY IS [facility] IN [place]. PATIENT REFUSED HOME HEALTH AT THIS TIME. CM WILL CONTINUE TO FOLLOW PATIENT WITH D/C NEEDS AND PLANS. PCP DR. AYON ([facility] IN [place]) [facility] IN [place] MAYELIN DINH [phone] Rotary Driller: Rita Serrano DCPIA - Discharge Planning Initial Assessment Updated by [email or web address]: Rita Serrano on 07/20/18 9:26 am * Is the patient Alert and Oriented? Yes * How many steps to enter\exit or inside your home? * PCP DR. AYON ([facility]) [facility] IN [place] * Pharmacy [facility] IN [facility] * Preadmission Environment Home with Family * ADLs Independent * Equipment Bedside Commode Cane Walker * List name and contact numbers for known caregivers / representatives who currently or will assist patient after discharge: MAYELIN DINH [phone] * Verbal permission to speak to the caregivers and representatives has been obtained from the patient. Yes * Community resources currently utilized None * Additional services required to return to the preadmission environment? Yes * Can the patient safely return to the preadmission environment? Yes * Has this patient been hospitalized within the prior 30 days at any hospital? No Coverage Notice Reviewer: [id number] - Shahid Hall Notice Issued Date-Time: 07/22/2018 13:40 Notice Type: Patient Choice Letter Notice Delivered To: Patient Relationship to Patient: Night Club Manager Name: Delivery Method: HAND - Hand Delivered Deysi Days: Prior Verbal Notification: Recipient Understood Notice: Yes Recipient Signature: Yes Med Rec Note Co-signed by Attending: Coverage Notice Comment: [facility] Last DP export: 07/23/18 10:42 a Patient Name: LEANDRO DICKEY Page [id number] at 1157 All edits/amendments must be made on the electronic document DICTATION DATE: 07/23/18 1157 TROUBLE OPERATOR: NAREN 07/23/18 1157 RPT#: [id number] DC DATE: STATUS: ADM IN [facility] [address] [place] [address] END OF REPORT
--- NOTE | 2018-07-23 14:46 | MORECARE ---
CASE MANAGEMENT DISCHARGE SUMMARY PATIENT: LEANDRO DICKEY UNIT: [id number] ADM DATE: 07/16/18 AGE: 47 : 68 SEX: F ROOM/BED: D.7193 AUTHOR: AKASH,DOC PHYSICIAN: REFERRING PHYSICIAN: CROW SOSA MD DATE OF SERVICE: 07/23/18 Discharge Plan Patient Name: LEANDRO DICKEY Facility: [facility]:[place] : 1970 Planned Disposition: Home with Home Health Anticipated Discharge Date: 07/23/18 Discharge Date: Expected LOS: 7 Initial Reviewer: [id number] Initial Review Date: 07/20/2018 Generated: 07/23/18 3:46 pm Comments DCP- Discharge Planning Updated by [id number]: Shahid Hall on 07/23/18 1:[address] Patient Name: LEANDRO DICKEY Admission Status: ER Accout number: [id number] Admission Date: 07-16-2018 : 1970 Admission Diagnosis:ACUTE KIDNEY FAILURE, UNSPECIFIED Attending: CROW SOSA Current LOS: 7 Anticipated DC Date: 07-23-2018 Planned Disposition: Home with Home Health Primary Insurance: MEDICAID [place] PLANNED EXTERNAL PROVIDER: [facility] Discharge Planning Comments: CM RECEIVED ORDER FOR WALKER AND ANKLE BOOT. CM NOTIFIED CLINICAL RESEARCHER WHO WILL NOTIFY CEN[employer] SUP[employer]Y REGARDING ANKLE BOOT. CM MET WITH PT IN ROOM, DISCUSSED WALKER ORDER, PROVIDED LIST OF MEDICAL EQUIPMENT PROVIDERS. PT WANTS STANDARD WALKER THAT INSURANCE WILL COVER COSTS. PT HAS NO CHOICE ON PROVIDER. PT STILL IN AGREEMENT WITH [facility] FOR PHYSICAL THERAP[facility] SERVICES, CHOICE PREVIOUSLY SIGNED FOR [facility]. PT DENIES FURHTER NEEDS. CM RECEIVED ORDER FOR HOME HEALTH. CM [email or web address], , SPOKE TO JANINE AND PROVIDED REFERRAL INFORMATION. CM FAXED REFERRAL TO [facility], . JANINE ADVISED THEY WILL DELIVER WALKER TO HOSPITAL TODAY. CM CALLED [facility], , SPOKE TO MARY LOU WHO TOOK REFERRAL INFORMATION AND WILL SCREEN AND CALL CM SHORTLY WITH ADMIT DETERINATION FOR HOME HEALTH SERVICES. CM FAXED REFERRAL AND DISCHARGE INFORMATION TO [facility] AT [phone]. CM WAITING ADMISSION DETERMINATION FROM [facility]. Sound Cutter: Shahid Hall Appended by Shahid Hall on 07/23/2018 14:37 CDT: CM CALLED [facility], , SPOKE TO MARY LOU WHO CONFIRMED THEY WILL ACCEPT PT AND SHE IS ON THE SCHEDULE FOR TOMORROW ADMIT. GLAZIER SUPERVISOR NURSE NOTIFIED. NO FURHTHER DISCHARGE NEEDS IDENTIFIED. CLAYOTN HANDLEY DCP- Discharge Planning Updated by [email or web address]: Shahid Hall on 07/22/18 1:[address] Patient Name: LEANDRO DICKEY Encounter No: [id number] : 1970 Primary Insurance: MEDICAID [facility] DC Date: 07-23-2018 Planned Disposition: Home with Home Health External Planned Provider: [facility] DCP follow-up note: CM MET WITH PT IN ROOM TO DISCUSS DISCHARGE NEEDS AND PLANNING. CM DISCUSSED AVAILABILITY OF HOME HEALTH, REHAB SERVICES AND MEDICAL EQUIPMENT. PT DOES NOT HAVE INPATIENT OR INTERMEDIATE BENEFIT WITH MEDICAID. PT DECLINES ASSISTED CARE PLACEMENT IN JAIL. CM DISCUSSED OUTPATIENT AND HOME HEALTH THERAPY. PT WOULD LIKE CM TO CALL [facility] AND EXPLORE THE OPTION. CM CALLED [facility] OUTPATIENT THERAPY DEPARTMENT, , SPOKE TO CELESTE WHO INFORMED CM THAT PT ONLY GETS 12 ACUTE VISITS FOR OUTPATIENT SERVICES PER YEAR AND THAT INCLUDES DOCTOR CONSULTS AND DENTISTRY. CELESTE SUGGESTS THAT PT ACCEPT HOME HEALTH WITH [facility] AND THEY CAN WORK WITH HOME HEALTH AND PROVIDE ACCESS TO THE OUTPATIENT GYM TO ASSIST WITH THERAPY SERVICES THROUGH MEDICAID. CM SPOKE TO PT IN ROOM, PT AGREEABLE WITH HOME HEALTH SUGGESTED BY [facility]; PROVIDER LISTING PROVIDED, CHOICE SIGNED FOR [facility]. PT REPORTS A FRIEND FROM [place] TO TRANSPORT HOME AT DISCHARGE. PT [place] [address] [address] PT PLANS TO DISCHARGE HOME TO HER BROTHER'S HOME, WANTS HOME HEALTH FOR PHYSICAL THERAPY, CM TO ARRANGE WITH [facility] WITH PHYSICIAN AGREEMENT AND ORDERS. CM TO FOLLOW AND ASSIST NEEDED. CLAYTON Handley DCP- Discharge Planning Updated by [id number]: Rita Serrano on 07/20/18 8:[address] Patient Name: LEANDRO DICKEY Admission Status: ER Accout number: [id number] Admission Date: 07-16-2018 : 1970 Admission Diagnosis: Attending: CROW SOSA Current LOS: 4 Anticipated DC Date: 07-24-2018 Planned Disposition: Home Primary Insurance: MEDICAID [place] Discharge Planning Comments: CM MET WITH PATIENT REGARDING D/C NEEDS AND PLANS. PATIENT STATED SHE LIVES WITH FAMILY AND HER FRIEND RAJAT SHUKLA WILL DRIVE HER HOME AT DISCHARGE. PATIENT STATES SHE HAS 2 STEPS TO ENTER HER HOME. PATIENT STATED SHE IS INDEPENDENT WITH HER CARE AND HAS A WALKER, CANE, AND BSC AT HOME IF NEEDED. PATIENTS PCP IS DR. AYON IN [place] BUT SHE SEES [facility]. [facility] IN [place]. PATIENT REFUSED HOME HEALTH AT THIS TIME. CM WILL CONTINUE TO FOLLOW PATIENT WITH D/C NEEDS AND PLANS. PCP DR. AY[facility] ([facility] [place]) [facility] IN [place] MAYELIN DINH [phone] Sound Cutter: Rita Serrano DCPIA - Discharge Planning Initial Assessment Updated by [id number]: Rita Serrano on 07/20/18 9:26 am * Is the patient Alert and Oriented? Yes * How many steps to enter\exit or inside your home? * PCP DR[facility] AYON ([facility] [place] * Pharmacy [facility] * Preadmission Environment Home with Family * ADLs Independent * Equipment Bedside Commode Cane Walker * List name and contact numbers for known caregivers / representatives who currently or will assist patient after discharge: MAYELIN DINH [phone] * Verbal permission to speak to the caregivers and representatives has been obtained from the patient. Yes * Community resources currently utilized None * Additional services required to return to the preadmission environment? Yes * Can the patient safely return to the preadmission environment? Yes * Has this patient been hospitalized within the prior 30 days at any hospital? No Coverage Notice Reviewer: [id number] Saundra Hall Notice Issued Date-Time: 07/22/2018 13:40 Notice Type: Patient Choice Letter Notice Delivered To: Patient Relationship to Patient: Loss Prevention Supervisor Name: Delivery Method: HAND - Hand Delivered Deysi Days: Prior Verbal Notification: Recipient Understood Notice: Yes Recipient Signature: Yes Med Rec Note Co-signed by Attending: Coverage Notice Comment: [facility] Last DP export: 07/23/18 10:57 a Patient Name: LEANDRO DICKEY Page 25041 at 1446 All edits/amendments must be made on the electronic document DICTATION DATE: 07/23/181445 COMMUNICATIONS AND SIGNALS SUPERVISOR: NAREN 07/23/18 1446 RPT#: [id number] DC DATE: STATUS: ADM IN [facility] [address] [place] [address] END OF REPORT
== END 2018-07-23 19:58 | disposition home health service (06) | DRG 74 ==
LOC: D.ER 01:54 → D.M2 04:03
PROVIDERS: Family Medicine; Internal Medicine Nephrology; ADMIT Emergency Medicine; ATTEND Emergency Medicine
DX: S84.12XA Injury of peroneal nerve at lower leg level, left leg, initial encounter (principal); N17.9 Acute kidney failure, unspecified; M62.82 Rhabdomyolysis; S22.089A Unspecified fracture of T11-T12 vertebra, initial encounter for closed fracture; E87.1 Hypo-osmolality and hyponatremia; I10 Essential (primary) hypertension; F32.9 Major depressive disorder, single episode, unspecified; F41.9 Anxiety disorder, unspecified; M25.552 Pain in left hip; M25.551 Pain in right hip; M51.36 Other intervertebral disc degeneration, lumbar region; E83.51 Hypocalcemia; M25.471 Effusion, right ankle; W19.XXXA Unspecified fall, initial encounter; D50.9 Iron deficiency anemia, unspecified; T24.209A Burn of second degree of unspecified site of unspecified lower limb, except ankle and foot, initial encounter; T31.0 Burns involving less than 10% of body surface; F10.20 Alcohol dependence, uncomplicated; K76.0 Fatty (change of) liver, not elsewhere classified